=== PATIENT | male | born 1990 | race Caucasian/White ===

== ENCOUNTER 2020-07-25 12:27 | Observation (INO) ==
[2020-07-25] MEDS ORDERED: 0.9 % Sodium Chloride 1,000 ML IVC ONE ×2 (12:54→14:07)
[2020-07-25] MEDS ORDERED: *HR* Adenosine 6 MG/2 ML VIAL IVP ONE ×2 (12:54)
[2020-07-25] MEDS ORDERED: *HR* Metoprolol 5 MG/5 ML VIAL IVP ONE ×2 (13:09→13:10)
[2020-07-25 13:52] LABS: Basophils # 0.1 K/mcL (0.0-0.2); Basophils % 1.9 %; Eosinophils # 0.2 K/mcL (0.0-0.6); Eosinophils % 3.2 %; Hematocrit 46.6 % (37.5-50.1); Hemoglobin 16.5 g/dL (12.9-16.9); Immature Granulocytes % 0.2 % (0-4); Lymphocytes # 1.6 K/mcL (0.6-4.6); Lymphocytes % 33.9 %; Mean Corpuscular HGB Conc 35.4 g/dL (31.6-35.5); Mean Corpuscular Hemoglobin 35.5 pg (28.0-33.3); Mean Corpuscular Volume 100.2 fL (83.0-100.0); Mean Platelet Volume 9.7 fL (9.4-12.4); Monocytes # 0.5 K/mcL (0.0-1.3); Monocytes % 10.4 %; Neutrophils # 2.4 K/mcL (1.6-8.9); Platelet Count 246 K/mcL (140-400); Red Blood Count 4.65 M/mcL (4.19-5.50); Red Cell Distribution Width 11.8 % (11.5-14.5); Segmented Neutrophils % 50.4 %; White Blood Count 4.7 K/mcL (4.3-11.1)
[2020-07-25] MEDS ORDERED: *HR* LORazepam 2 MG/ML VIAL IVP ONE (14:08)
[2020-07-25 14:11] LABS: BUN/Creatinine Ratio 7 (6-26); Blood Urea Nitrogen 6 mg/dL (6-20); Calcium 9.4 mg/dL (8.6-10.3); Carbon Dioxide 24 mEq/L (23-29); Chloride 104 mEq/L (98-107); Glucose 99 mg/dL (70-105); Magnesium 1.8 mg/dL (1.6-2.6); Osmolality,Calculated 284 (280-300); Potassium 3.8 mEq/L (3.5-5.1); Sodium 138 mEq/L (136-145); eGFR For African Americans > 60 (> 60); eGFR For Non-African Americans > 60 (> 60)
[2020-07-25 14:24] LABS: Thyroid Stimulating Hormone 2.436 mcIU/mL (0.340-5.600)
[2020-07-25 14:25] LABS: Amphetamine Screen,Urine Negative ng/mL (Cutoff=1000); Barbiturate Screen,Urine Negative ng/mL (Cutoff=200); Benzodiazepines Screen,Urine Negative ng/mL (Cutoff=200); Cannabinoid Screen,Urine Negative ng/mL (Cutoff = 50); Cocaine Screen,Urine Negative ng/mL (Cutoff= 300); Opiate Screen,Urine Negative ng/mL (Cutoff=300); Phencyclidine Screen,Urine Negative ng/mL (Cutoff=25)
[2020-07-25] MEDS ORDERED: Acetaminophen 325 MG TABLET PO PRN (14:35)
[2020-07-25] MEDS ORDERED: Ondansetron 4 MG/2 ML VIAL IVP PRN (14:35)
[2020-07-25] MEDS ORDERED: Naloxone 0.4 MG/ML INJ IVP PRN (14:35)
[2020-07-25] MEDS ORDERED: *HR* LORazepam 2 MG/ML VIAL IVP PRN ×3 (14:36)
[2020-07-25 15:02] LABS: Troponin I < 0.03 ng/mL (< 0.04)
[2020-07-25] MEDS ORDERED: Ringers Solution, Lactated 1,000 ML IVC ONE (15:50)
[2020-07-25] MEDS ORDERED: Ringers Solution, Lactated 1,000 ML IVC SCH (16:00)
[2020-07-25] MEDS ORDERED: *HR* Heparin 5,000 UNIT/ML VIAL IVP PRN (16:16)
[2020-07-25] MEDS ORDERED: *HR* Heparin 5,000 UNIT/ML VIAL IVP ONE (16:16)
[2020-07-25] MEDS ORDERED: Perflutren Lipid Microsphere 1.3 ML in 0.9 % Sodium Chloride 8.7 ML IVP PRN (16:19)
[2020-07-25] MEDS: Heparin 25,000UNIT/250ML 1/2NS 25,000 UNIT/250 ML IV.SOLN IVC SCH (17:02)
[2020-07-25] MEDS: DilTIAZem 50 MG/50 ML IV.SOLN IVC SCH ×2 (17:02→22:44)
[2020-07-25] MEDS: Ringers Solution, Lactated 1,000 ML IVC SCH (17:56)
[2020-07-25 18:22] LABS: INR 1.2; Prothrombin Time 13.3 Seconds (9.4-12.1)
[2020-07-25] MEDS: *HR* Heparin 5,000 UNIT/ML VIAL IVP PRN (23:45)
[2020-07-26] MEDS: DilTIAZem 50 MG/50 ML IV.SOLN IVC SCH ×2 (03:03→11:00)
[2020-07-26 06:02] LABS: Basophils # 0.1 K/mcL (0.0-0.2); Basophils % 1.5 %; Eosinophils # 0.2 K/mcL (0.0-0.6); Eosinophils % 3.1 %; Hematocrit 40.6 % (37.5-50.1); Immature Granulocytes % 0.1 % (0-4); Lymphocytes # 2.3 K/mcL (0.6-4.6); Lymphocytes % 34.1 %; Mean Corpuscular HGB Conc 35.2 g/dL (31.6-35.5); Mean Corpuscular Hemoglobin 35.6 pg (28.0-33.3); Mean Platelet Volume 9.9 fL (9.4-12.4); Monocytes # 0.6 K/mcL (0.0-1.3); Neutrophils # 3.5 K/mcL (1.6-8.9); Platelet Count 204 K/mcL (140-400); Red Blood Count 4.02 M/mcL (4.19-5.50); Red Cell Distribution Width 11.8 % (11.5-14.5); Segmented Neutrophils % 52.2 %; White Blood Count 6.7 K/mcL (4.3-11.1)
[2020-07-26 06:06] LABS: Hemoglobin 14.3 g/dL (12.9-16.9)
[2020-07-26 06:20] LABS: BUN/Creatinine Ratio 7 (6-26); Blood Urea Nitrogen 5 mg/dL (6-20); Calcium 8.9 mg/dL (8.6-10.3); Carbon Dioxide 26 mEq/L (23-29); Chloride 104 mEq/L (98-107); Glucose 102 mg/dL (70-105); Magnesium 1.8 mg/dL (1.6-2.6); Osmolality,Calculated 283 (280-300); Potassium 3.7 mEq/L (3.5-5.1); Sodium 138 mEq/L (136-145); eGFR For African Americans > 60 (> 60); eGFR For Non-African Americans > 60 (> 60)
[2020-07-26] MEDS: *HR* Heparin 5,000 UNIT/ML VIAL IVP PRN (06:27)
[2020-07-26] MEDS: Thiamine (B-1) 100 MG TABLET PO SCH (10:19)
[2020-07-26] MEDS: Vitamin B Complex/Vit C/Vit E 1 EACH TABLET PO SCH (10:19)
[2020-07-26] MEDS: Folic Acid 1 MG TABLET PO SCH (10:19)
[2020-07-26] MEDS: *HR* Buprenorphine HCl 8 MG TAB.SUBL SL SCH ×2 (11:00→19:28)
[2020-07-26] MEDS: Heparin 25,000UNIT/250ML 1/2NS 25,000 UNIT/250 ML IV.SOLN IVC SCH (14:28)
[2020-07-26] MEDS: Ringers Solution, Lactated 1,000 ML IVC SCH (17:55)
[2020-07-27] MEDS ORDERED: *HR* Rivaroxaban 10 MG TABLET PO SCH (09:00)
[2020-07-27] MEDS ORDERED: DilTIAZem SR (12hr) 90 MG CAP.ER.12H PO SCH (09:00)
[2020-07-27] MEDS: *HR* Buprenorphine HCl 8 MG TAB.SUBL SL SCH (09:04)
[2020-07-27] MEDS: Vitamin B Complex/Vit C/Vit E 1 EACH TABLET PO SCH (09:04)
[2020-07-27] MEDS: Thiamine (B-1) 100 MG TABLET PO SCH (09:04)
[2020-07-27] MEDS: Folic Acid 1 MG TABLET PO SCH (09:05)
[2020-07-27 11:41] VITALS: BP 136/88
[2020-07-28] MEDS ORDERED: DilTIAZem CD (24hr) 120 MG CAP.ER.24H PO SCH (09:00)
[2020-07-28] MEDS ORDERED: Aspirin 81 MG TAB.CHEW PO SCH (09:00)
== END 2020-07-27 13:21 | disposition home or self-care (01) ==
LOC: EMEROOARM 12:27 → 3BNU 12:27 → SUATTDRO 14:12 → 3BNU 14:49
PROVIDERS: ADMIT Internal Medicine; ATTEND Internal Medicine